=== PATIENT | female | born 1995 | race Caucasian/White ===

== ENCOUNTER 2018-02-17 22:58 | Emergency (ER) | payer SELFPAY ==
[2015-06-27 10:07] VITALS: Wt 172.4 kg
[~2018-02-17 22:58] MED LIST: ACE3 PO; AML5 PO; AMLO-1 PO; AMOX1TAB3 FT; ASPI81TA94 PO; ATEN-1 PO; ATENOLOL; AZI250 PO; Benzocaine 60 ML TP; DIC50 PO; DOCU240C67 PO; FERR-53 PO; FERR325C2 PO; FLU20 PO; FLUO-202 PO; FOLI0.4T56 PO; HYDR473S4 PO; IBUP600T22 PO; KET10 PO; LISI-346 PO; LISI-362 PO; LOR5 PO; Lanolin TP; MULT-1335 PO; NAP250 PO; OMEG-11 PO; OMEP-218 PO; OMEP10CA40 PO; ONDA4TAB PO; PER PO; PREN-119 PO; PROM-110 PO; RAN150 PO; RANI-366 PO; TRA50 PO; TRAM-420 PO; TRAZ50 PO; TUCKS TP; WARF-1 PO; ZOLP-350 PO
--- NOTE | 2018-02-17 23:05 | ER Report ---
History and Physical Time Seen By : 23:05 HPI/ROS 23-year-old otherwise healthy female who presents to the emergency department with a strain in her right lower back. She states that the pain started while she was sweeping the floor at home this morning. She was well prior to that. She works as a [employer]. She worked during the night, went to sleep, woke up and started to experience the pain must she was sleeping. She is able to ambulate but feels a strain on the right low back. No weakness or numbness in her lower extremities. No significant trauma. No fever or chills. No IVDA. She states that the pain is sharp its on the right lower side it radiates down her right buttocks and down her right leg. He has no other complaints. Remainder of the 14 system rev: Yes Allergies: Coded Allergies: Sulfa (Sulfonamide Antibiotics) (Verified Allergy, Unknown, HIVES, ) Home Meds Reported Medications Acetaminophen (TYLENOL EXTRA STRENGTH) 500 Mg Tablet, 500 MG PO, TAB 02/17/18 Discontinued Reported Medications Vit/Iron Fumarate/Fa ( VITAMIN TABLET) 1 Each Tablet, 1 EACH PO DAILY 06/26/15 Discontinued Scripts [Lanolin] 7 GM OINT No Conflict Check, 0 GM TP PRN Y for DISCOMFORT FOR NURSING MOTHERS Prov:TIERRA LORENZO MD 06/28/15 Ibuprofen (IBUPROFEN) 600 Mg Tab, 600 MG PO Q6H Y for PAIN for 10 Days, TAB Prov:TIERRA LORENZO MD 06/28/15 Glycerin/Witch Marylou Wheelwright (PREPARATION H) 1 Pkg Pad, 0 PKG TP PRN Y for PAIN for 10 Days, PAD Prov:TIERRA LORENZO MD 06/28/15 Ferrous Sulfate (FERROUS SULFATE) 325 Mg Tab, 325 MG PO DAILY for 60 Days, TAB Prov:TIERRA LORENZO MD 06/28/15 Docusate Calcium (DOCUSATE CALCIUM) 240 Mg Cap, 240 MG PO BID for 10 Days, CAPSULE Prov:TIERRA LORENZO MD 06/28/15 [Benzocaine] 60 ML AERS No Conflict Check, 0 ML TP PRN Y for PAIN Prov:TIERRA LORENZO MD 06/28/15 Reviewed Nurses Notes: Yes Old Medical Records Reviewed: Yes Hx Smoking: No Smoking Status: Never Smoker Exposure to Second Hand Smoke?: No Constitutional Vital Sign - Last 24 Hours 02/17/18 23:05 Temp 99.2 Pulse 113 Resp 20 B/P (MAP) 185/118 Pulse Ox 93 O2 Delivery Room Air Physical Exam General Appearance: The patient is alert, has no immediate need for airway protection and no current signs of toxicity. Eyes: Pupils equal and round no injection. Respiratory: Chest is non tender, lungs are clear to auscultation. Cardiac: regular rate and rhythm Gastrointestinal: Abdomen is soft and non tender, no masses, bowel sounds normal. Musculoskeletal: TTP at the right paraspinal area of the lumbar region. Also with TTP along the sciatic nerve on the right buttocks. No midline TTP. No rashes or lesions. Neck: Neck is supple and non tender. Extremities have full range of motion and are non tender. Skin: No rashes or lesions. DIFFERENTIAL DIAGNOSIS: After history and physical exam differential diagnosis was considered for back pain including but not limited to muscular pain, herniated disc, spine fracture, intra-abdominal causes and urinary tract infection. Medical Decision Making ED Course/Re-evaluation ED Course This is an otherwise healthy 23-year-old female who presents to the emergency department with an acute back strain that she developed while sweeping her house today. She has no urinary symptoms, no abdominal pain, no fever or chills. Her history and physical exam are consistent with sciatica likely caused by a strain in her right lower back. She was given Valium, Toradol, and Decadron. Her pain has improved. I will encourage her to continue with ibuprofen and Tylenol. Decision to Disposition Date: Feb 18, 2018 Decision to Disposition Time: 00:29 Depart Departure Latest Vital Signs Vital Signs Date Time Temp Pulse Resp B/P (MAP) Pulse Ox O2 Delivery O2 Flow Rate FiO2 02/17/18 23:05 99.2 113 20 185/118 93 Room Air Impression: Primary Impression: Back pain Condition: Improved Disposition: HOME OR SELF-CARE Patient Instructions: Sciatica (ED) Problem Qualifiers Primary Impression: Back pain Back pain location: low back pain Chronicity: acute Back pain laterality: right Sciatica presence: with sciatica Sciatica laterality: sciatica of right side Qualified Codes: M54.41 - Lumbago with sciatica, right side WESLEY BASSETT MD Feb 17, 2018 23:05
[2018-02-17] MEDS ORDERED: DIAZEPAM 5 MG TAB PO ONE (23:10)
[2018-02-17] MEDS ORDERED: DEXAMETHASONE 4 MG TAB PO ONE (23:10)
[2018-02-17] MEDS ORDERED: KETOROLAC 60 MG/2 ML VIAL IM ONE (23:10)
[2018-02-17] MEDS ORDERED: ACET500T68 PO (23:11)
[2018-02-18] MEDS ORDERED: DIAZEPAM 5 MG TAB PO ONE
[2018-02-18] MEDS ORDERED: ACETAMINOPHEN 500 MG TAB PO ONE
[2018-02-18 00:30] VITALS: BP 149/83
== END 2018-02-18 00:45 | disposition home or self-care (01) ==
LOC: ER 23:07
DX: M54.41 Lumbago with sciatica, right side (principal)
CPT/HCPCS: 96372; 99283; J1885; J8540

== ENCOUNTER 2019-01-27 18:25 | Emergency (ER) | payer SELFPAY ==
[2015-06-27 10:07] VITALS: Wt 172.4 kg
[~2019-01-27 18:25] MED LIST changes: +ACET500T68 PO
--- NOTE | 2019-01-27 18:28 | ER Report ---
History and Physical Time Seen By MD: 18:28 HPI/ROS CHIEF COMPLAINT: Dyspnea, cough HISTORY OF PRESENT ILLNESS: 24-year-old female sent over by Kasey Olson from the [facility] for evaluation. She is requesting a CTA pulmonary angiogram be performed to rule out pulmonary embolism. Patient suffered a URI for the last 4-5 weeks is continued to have cough and shortness of breath. He is worried that the patient may have a pulmonary embolism. Patient denies leg swelling or calf pain. Patient denies fever or chills. REVIEW OF SYSTEMS: Respiratory: No cough, no dyspnea. Cardiovascular: No chest pain, no palpitations. Gastrointestinal: No vomiting, no abdominal pain. Musculoskeletal: No back pain. Allergies: Coded Allergies: Sulfa (Sulfonamide Antibiotics) (Verified Allergy, Unknown, HIVES, 01/27) Home Meds Reported Medications Acetaminophen (TYLENOL EXTRA STRENGTH) 500 Mg Tablet, 500 MG PO, TAB 02/17/18 Reviewed Nurses Notes: Yes Old Medical Records Reviewed: Yes Hx Smoking: No Smoking Status: Never Smoker Exposure to Second Hand Smoke?: No Hx Alcohol Use: Yes (OCC) Constitutional Vital Sign - Last 24 Hours 01/27/19 01/27/19 01/27/19 01/27/19 18:31 18:45 19:15 19:30 Temp 98.1 Pulse 100 99 102 Resp 20 B/P (MAP) 181/101 183/113 (136) Pulse Ox 93 92 91 01/27/19 01/27/19 01/27/19 01/27/19 19:45 20:15 20:30 20:45 Pulse 100 102 95 B/P (MAP) 153/119 (130) Pulse Ox 94 92 90 Physical Exam Vital signs stable, tachycardic, afebrile, pulse ox normal General Appearance: The patient is alert, has no immediate need for airway protection and no current signs of toxicity. No acute distress Eyes: Pupils equal and round no injection. Respiratory: Chest is non tender, lungs are clear to auscultation. No chest wall tenderness, no wheezing or rails noted Cardiac: regular rate and rhythm Gastrointestinal: Abdomen is soft and non tender, no masses, bowel sounds normal. Musculoskeletal: Neck: Neck is supple and non tender. Extremities have full range of motion and are non tender. Skin: No rashes or lesions. DIFFERENTIAL DIAGNOSIS: After history and physical exam differential diagnosis was considered for shortness of breath including but not limited to pulmonary infectious process, COPD, asthma, pulmonary embolus and congestive heart failure. Medical Decision Making Data Points Laboratory Hematology Test 01/27/19 19:05 Human Chorionic Gonadotropin, Qual Negative (NEGATIVE) Chemistry Test 01/27/19 19:05 Human Chorionic Gonadotropin, Qual Negative (NEGATIVE) EKG/Imaging Imaging Results: CT scan of the CTA pulmonary angiogram was obtained. The results of the study a re CT ANGIOGRAM OF THE CHEST WITH INTRAVENOUS CONTRAST, PE PROTOCOL DATE OF EXAM: 01/27/2019 18:35 COMPARISON: Chest radiographs June 09, 2009 INDICATION: Dyspnea.. Cough TECHNIQUE: Contrast enhanced chest CT performed during the injection of 75 ml of Isovue 370. Three-dimensional (MIP) reconstructions were performed. FINDINGS: Negative for pulmonary arterial embolus. Thyroid: Unremarkable. Thoracic inlet: No thoracic inlet adenopathy. Heart and great vessels: Heart size is normal. Mediastinum and betzaida: No mediastinal or hilar adenopathy. Lungs and pleura: No effusion, consolidation, or pneumothorax. Breast and axilla: Unremarkable by CT. Bones and soft tissues: No acute osseous abnormality. Exaggerated thoracic kyphosis. Moderate multilevel degenerative findings. Upper abdomen: No acute osseous abnormality. IMPRESSION: Negative for pulmonary arterial embolus. The study was read by the radiologist. I viewed the images myself on the PACS system. ED Course/Re-evaluation ED Course Patient was admitted to an examination room. H&P was done. The differential diagnosis was considered. On clinical examination. Patient has shortness of breath or persistent cough for several weeks. She was sent over by primary care for evaluation. They're requesting a CTA pulmonary angiogram be performed. A CTA pulmonary injury and was performed after negative urine test. The CTA was negative for pulmonary embolism. Patient's reassured. She is advised Robitussin-DM and ibuprofen for treatment. Follow-up with primary care for further evaluation if her cough persists. Treatment for allergies, postnasal drip, asthma, GERD Should be considered Decision to Disposition Date: January 27, 2019 Decision to Disposition Time: 20:45 Depart Departure Latest Vital Signs Vital Signs Date Time Temp Pulse Resp B/P (MAP) Pulse Ox O2 Delivery O2 Flow Rate FiO2 01/27/19 20:45 95 90 01/27/19 20:30 153/119 (130) 01/27/19 18:31 98.1 20 Impression: Primary Impression: Cough Additional Impression: Dyspnea Condition: Improved Disposition: HOME OR SELF-CARE Patient Instructions: Dyspnea (ED) Additional Instructions: Follow-up with your primary care doctor if unimproved in 3-5 days Take Robitussin-DM cough syrup as needed Problem Qualifiers Additional Impression: Dyspnea Dyspnea type: unspecified Qualified Codes: R06.00 - Dyspnea, unspecified TESFAYE LOZANO DO January 27, 2019 18:28
[2019-01-27] MEDS ORDERED: IOPAMIDOL 76% 100 ML INFUS BTL 100 ML ONE (19:20)
[2019-01-27] MEDS ORDERED: NS(*) 0.9% 50 ML BAG 50 ML ONE (19:21)
[2019-01-27 20:30] VITALS: BP 153/119
--- NOTE | 2019-01-27 20:39 | RADIOLOGY IMAGING REPORT ---
FACILITY: [facility] PATIENT NAME: Rena Juan : 1995 MR: [id number] V: [id number] EXAM DATE: [id number] ORDERING PHYSICIAN: TESFAYE LOZANO TECHNOLOGIST: [facility] Patient: Rena Juan : 1995 Visit/Account:[id number] Date of Sevice: 01/27/2019 CT ANGIOGRAM OF THE CHEST WITH INTRAVENOUS CONTRAST, PE PROTOCOL DATE OF EXAM: 01/27/2019 18:35 COMPARISON: Chest radiographs June 09, 2009 INDICATION: Dyspnea.. Cough TECHNIQUE: Contrast enhanced chest CT performed during the injection of 75 ml of Isovue 370. Three-d imensional (MIP) reconstructions were performed. FINDINGS: Negative for pulmonary arterial embolus. Thyroid: Unremarkable. Thoracic inlet: No thoracic inlet adenopathy. Heart and great vessels: Heart size is normal. Mediastinum and betzaida: No mediastinal or hilar adenopathy. Lungs and pleura: No effusion, consolidation, or pneumothorax. Breast and axilla: Unremarkable by CT. Bones and soft tissues: No acute osseous abnormality. Exaggerated thoracic kyphosis. Moderate mult ilevel degenerative findings. Upper abdomen: No acute osseous abnormality. IMPRESSION: Negative for pulmonary arterial embolus. One of the following dose optimization techniques was utilized in the performance of this exam: Autom ated exposure control; adjustment of the mA and/or kV according to the patient's size; or use of an i terative reconstruction technique. Specific details can be referenced in the facility's radiology C T exam operational policy. Report Dictated By: Ashanti Adams MD at 01/27/2019 8:16 PM Report E-Signed By: Ashanti Adams MD at 01/27/2019 8:35 PM WSN:[email or web address]
== END 2019-01-27 21:15 | disposition home or self-care (01) ==
LOC: ER 18:52
DX: R05 Cough (principal); R06.02 Shortness of breath
CPT/HCPCS: 71275; 84703; 99284; J7050; Q9967

== ENCOUNTER → 2019-01-28 | Outpatient (REF) ==
[2015-06-27 10:07] VITALS: BMI 56.9
--- NOTE | 2019-01-28 14:25 | RADIOLOGY IMAGING REPORT ---
FACILITY: [facility] PATIENT NAME: Rena Juan : 1995 MR: [id number] V: [id number] EXAM DATE: ORDERING PHYSICIAN: SHARYN SMITH TECHNOLOGIST: Location: Patient: Rena Juan : 1995 Visit/Account:[id number] Date of Sevice: 01/28/2019 Exam type: 2 views left humerus History: Foreign body Comparison: None. Findings: 4 cm linear radiopaque foreign body projects within the soft tissues posterior to the mid left humeru s. No osseous abnormalities identified. IMPRESSION: 1. Linear radiopaque foreign body projects within the soft tissues posterior to the mid diaphysis of the left humerus. Report Dictated By: Renard Daly MD at 01/28/2019 2:19 PM Report E-Signed By: Renard Daly MD at 01/28/2019 2:21 PM WSN:[email or web address]
== END ==
LOC: RAD 12:33
PROVIDERS: ATTEND Registered Nurse Psychiatric/Mental Health
DX: S40.25 Superficial foreign body of shoulder (principal)

== ENCOUNTER → 2019-04-28 | Outpatient (REF) ==
[2015-06-27 10:07] VITALS: BMI 56.9
[~2019-04-28] MED LIST changes: -RANI-366 PO; +RANI-54 PO
== END ==
LOC: LAB 10:03
PROVIDERS: ATTEND Nurse Practitioner
DX: R73.03 Prediabetes (principal); Z79.84 Long term (current) use of oral hypoglycemic drugs; R14.0 Abdominal distension (gaseous); K43.9 Ventral hernia without obstruction or gangrene
CPT/HCPCS: 36415; 82565